=== PATIENT | female | born 1965 | race Caucasian/White ===

== ENCOUNTER 2021-10-18 06:28 | Day surgery (SDC) | payer MEDICAID ==
[~2021-10-18] VITALS: Ht 160 cm; Wt 83.0 kg
[2021-10-18 07:52] LABS: HCG,QUAL RESULT NEGATIVE (NEGATIVE)
[2021-10-18] MEDS: MIDAZOLAM HCL 5 MG/5 ML VIAL ONE ×2 (08:38→08:45)
[2021-10-18] MEDS: MEPERIDINE 100 MG INJ. 100 MG/ML VIAL ONE ×2 (08:38→08:47)
[2021-10-18 12:52] VITALS: BP_SYST 118
== END 2021-10-18 10:12 | disposition home or self-care (01) ==
LOC: SDS 06:28 → SMU 06:48 → SDS 10:12
PROVIDERS: ATTEND Internal Medicine Gastroenterology
DX: Z12.11 Encounter for screening for malignant neoplasm of colon (principal); D12.3 Benign neoplasm of transverse colon; K64.8 Other hemorrhoids; Z20.822 Contact with and (suspected) exposure to COVID-19
CPT/HCPCS: 36415; 45380; 84703; 87426; 88305; 99152; G0378; J2175; J2250